=== PATIENT | male | born 1965 | race Caucasian/White ===

== ENCOUNTER → 2016-08-02 | Outpatient (CLI) | payer MEDICARE | LOC: MRI 12:48 | DX: M48.02 Spinal stenosis, cervical region (principal); M50.31 Other cervical disc degeneration, high cervical region; M54.41 Lumbago with sciatica, right side; M54.42 Lumbago with sciatica, left side; M96.1 Postlaminectomy syndrome, not elsewhere classified; M47.812 Spondylosis without myelopathy or radiculopathy, cervical region; M51.36 Other intervertebral disc degeneration, lumbar region; Z95.1 Presence of aortocoronary bypass graft | CPT/HCPCS: 72141; 72148 ==

== ENCOUNTER 2020-09-07 12:18 | Emergency (ER) | payer MEDICARE, OTHER ==
[2020-09-07 13:36] LABS: HEMOGLOBIN 17.6 gm/dl (14.0-17.5); RED BLOOD COUNT 5.61 M/UL (4.20-5.50); WHITE BLOOD COUNT 8.2 K/UL (4.5-11.0)
[2020-09-07 14:05] LABS: BUN/CREATININE RATIO 17 (0-10)
== END 2020-09-07 16:30 | disposition home or self-care (01) ==
LOC: ER1 12:18
DX: R07.9 Chest pain, unspecified (principal); R06.02 Shortness of breath; I11.9 Hypertensive heart disease without heart failure; K21.9 Gastro-esophageal reflux disease without esophagitis; F17.200 Nicotine dependence, unspecified, uncomplicated
CPT/HCPCS: 71045; 80053; 82550; 82553; 83874; 84484; 85025; 93005; 99285

== ENCOUNTER → 2020-10-17 | Outpatient (CLI) | payer MEDICARE | LOC: ECHO 08:50 → NM 10:00 | DX: R07.9 Chest pain, unspecified (principal) | CPT/HCPCS: ECHO; 78452; 93017; 93306; A9502; J2785 ==

== ENCOUNTER → 2021-04-17 | Outpatient (CLI) | payer MEDICARE | LOC: EMI 14:27 | DX: M50.31 Other cervical disc degeneration, high cervical region (principal); M48.03 Spinal stenosis, cervicothoracic region; M47.812 Spondylosis without myelopathy or radiculopathy, cervical region; M25.78 Osteophyte, vertebrae | CPT/HCPCS: 72141 ==

== ENCOUNTER → 2021-08-10 | Outpatient (CLI) | payer MEDICARE | LOC: CT 12:47 | DX: D21.9 Benign neoplasm of connective and other soft tissue, unspecified (principal); K76.0 Fatty (change of) liver, not elsewhere classified | CPT/HCPCS: 36415; 82565; 84520; Q9967 ==